=== PATIENT | female | born 1940 | race Caucasian/White ===

== ENCOUNTER 2024-09-10 12:32 | Outpatient (CLI) | payer MEDICARE ==
[2024-09-10] MEDS ORDERED: Iopamidol 370 76% 100 ML VIAL ONE (15:50)
== END 2024-09-10 12:33 | disposition home or self-care (01) ==
LOC: CT 12:32
PROVIDERS: ATTEND Thoracic Surgery (Cardiothoracic Vascular Surgery)
DX: I71.21 Aneurysm of the ascending aorta, without rupture (principal); R91.1 Solitary pulmonary nodule; N63.10 Unspecified lump in the right breast, unspecified quadrant; I70.201 Unspecified atherosclerosis of native arteries of extremities, right leg
CPT/HCPCS: 36415; 71275; 82565; Q9967

== ENCOUNTER 2025-04-13 13:34 | Outpatient (CLI) | payer MEDICARE | END 2025-04-13 13:35 | disposition home or self-care (01) | LOC: BICCT 13:34 | PROVIDERS: ATTEND Internal Medicine | DX: R91.8 Other nonspecific abnormal finding of lung field (principal); J98.4 Other disorders of lung; I77.819 Aortic ectasia, unspecified site; N63.10 Unspecified lump in the right breast, unspecified quadrant | CPT/HCPCS: 71250 ==

== ENCOUNTER 2025-06-18 08:02 | Outpatient (CLI) | payer MEDICARE | END 2025-06-18 08:03 | disposition home or self-care (01) | LOC: CT 08:02 | PROVIDERS: ATTEND Specialist | DX: C50.511 Malignant neoplasm of lower-outer quadrant of right female breast (principal); J98.4 Other disorders of lung; J84.10 Pulmonary fibrosis, unspecified; I77.810 Thoracic aortic ectasia; I51.7 Cardiomegaly; E04.1 Nontoxic single thyroid nodule; N28.1 Cyst of kidney, acquired; I70.0 Atherosclerosis of aorta; K57.30 Diverticulosis of large intestine without perforation or abscess without bleeding; M47.819 Spondylosis without myelopathy or radiculopathy, site unspecified; Z90.710 Acquired absence of both cervix and uterus; Z90.13 Acquired absence of bilateral breasts and nipples; Z98.890 Other specified postprocedural states | CPT/HCPCS: 71260; 74177; 78306; A9503 ==

== ENCOUNTER 2025-06-25 14:20 | Outpatient (CLI) | payer MEDICARE | END 2025-06-25 14:21 | disposition home or self-care (01) | LOC: SCSBT 14:20 | PROVIDERS: ATTEND Internal Medicine | DX: C50.511 Malignant neoplasm of lower-outer quadrant of right female breast (principal); M81.0 Age-related osteoporosis without current pathological fracture; M85.852 Other specified disorders of bone density and structure, left thigh | CPT/HCPCS: 77080 ==

== ENCOUNTER 2025-08-29 18:27 | Emergency (ER) | payer BC, MEDICARE ==
[2025-08-29] MEDS ORDERED: Tranexamic Acid 1,000 MG/10 ML VIAL ONE (18:48)
[2025-08-29] MEDS ORDERED: hydrALAZINE 20 MG/ML VIAL ONE (18:48)
[2025-08-29 19:10] LABS: #Basophils 0.03 10x3/uL (0.0-0.2); #Eosinophils 0.43 10x3/uL (0.0-0.7); #Monocytes 0.61 10x3/uL (0.11-0.59); #Neutrophils 5.47 10x3/uL (1.40-6.50); %Basophils 0.4 % (0.0-1.0); %Eosinophils 5.8 % (0.0-10.0); %Lymphocytes 11.2 % (21.0-51.0); %Monocytes 8.2 % (0.0-10.0); %Neutrophils 74.0 % (42.0-75.0); Hematocrit 38.8 % (36.0-47.0); Hemoglobin 12.7 g/dL (12.0-16.0); Mean Corpuscular Hemoglobin 30.0 pg (27.0-31.0); Mean Corpuscular Volume 91.5 fL (78.0-98.0); Platelet Count 368 10x3/uL (130-400); Red Blood Cell (RBC) Count 4.24 mill/uL (4.20-5.40); White Blood Cell (WBC) Count 7.40 10x3/uL (4.8-10.8)
[2025-08-29 19:24] LABS: ALT (SGPT) 16 U/L (Less than 34); AST (SGOT) 16 U/L (11-34); Albumin 3.9 g/dL (3.1-4.5); Alkaline Phosphatase 76 U/L (40-110); Anion Gap 16 mmol/L (10-20); BUN (Urea Nitrogen) 20 mg/dL (9.8-20.1); Bilirubin, Total 0.4 mg/dL (0.3-1.2); Calc. Creatinine Clearance 0 mL/min (70-130); Calcium 9.6 mg/dL (7.8-10.44); Carbon Dioxide 24 mmol/L (23-31); Chloride 98 mmol/L (98-107); Globulin 2.7 g/dL (2.4-3.5); Glucose 116 mg/dL (83-110); Potassium 4.8 mmol/L (3.5-5.1); Sodium 133 mmol/L (136-145)
[2025-08-29] MEDS ORDERED: HUM PROTHROMBIN CPLX(PCC)4FACT 2,000 UNITS in Admixture Fee 1 EACH IV SCH (19:45)
[2025-08-29] MEDS ORDERED: Metoclopramide HCl 10 MG (2 mL) VIAL ONE (19:52)
[2025-08-29 20:00] LABS: INR-International Normal Ratio 1.2; Prothrombin Time 15.8 sec (12.0-14.7)
[2025-08-29 20:01] LABS: PTT 30.7 sec (22.9-36.1)
[2025-08-29] MEDS ORDERED: Pantoprazole 40 MG VIAL ONE (20:09)
[2025-08-29] MEDS ORDERED: Ondansetron PF 4 MG/2 ML Vial ONE (20:09)
== END 2025-08-29 22:57 | disposition short-term general hospital (02) ==
LOC: ERS 18:27
DX: R04.0 Epistaxis (principal); E03.9 Hypothyroidism, unspecified; I10 Essential (primary) hypertension; Z79.01 Long term (current) use of anticoagulants; Z79.899 Other long term (current) drug therapy
CPT/HCPCS: 80053; 85025; 85610; 85730; J0360; J2405; J2470; J2597; J2765; J3010; J7168; 30905; 51702; 96365; 96375